=== PATIENT | male | born 1945 | race African-American/Black ===

== ENCOUNTER 2017-08-13 13:09 | Emergency (ER) | payer MEDICARE ==
[~2017-08-13] VITALS: Ht 185.4 cm; Wt 81.0 kg
[~2017-08-13 13:09] MED LIST: ACTOS45 MG PO; CATAPRES0.2 MG PO; CIPROFLOXACN500 MG PO; COUMADIN4 MG PO; DILAUDID 2MG2 MG/TA1 PO; DILAUDID2 MG PO; FERROUS SULF325 M3 PO; GLUCOPHAGE1000 MG PO; GLYBURID MCR6 MG PO; HUMALOG KW75 MG/25 K SC; KEFLEX500 MG PO; LABETALOL200 MG PO; LANTUS100 MG/ML SC; LOSARTAN POTASS1 TA1 PO; LOSARTAN/HCT1 TA2 PO; NOVOLOG MIX SC; OMEPRAZOLE20 MG PO; PYRIDIUM200 MG PO; SIMVASTATIN20 MG PO; TENORMIN100 MG PO; VERELAN PO
[2017-08-13 13:56] LABS: HEMOGLOBIN 11.4 g/dl (14.0-18.0); IMMATURE GRANULOCYTES 0.4 % (0.0-1.0); MEAN CELL VOLUME 71.6 fL CALC (80.0-100.0); MEAN CORPUSCULAR HGB 22.7 pG CALC (26.0-32.0); MEAN CORPUSCULAR HGB CONC 31.7 g/L CALC (32.0-36.0); NEUT# 8.48 thou/uL (1.82-7.42); RED BLOOD COUNT 5.03 mill/uL (4.70-6.10); RED CELL DISTRI WIDTH 14.7 % (11.5-15.5)
[2017-08-13 14:14] LABS: ALBUMIN 4.8 g/dL (3.2-5.0); ALKALINE PHOSPHATASE 79 u/l (38-126); ANION GAP 17 (6-22 (CALC)); BILIRUBIN, TOTAL 0.6 mg/dL (0.0-1.4); BUN 16 mg/dL (8-23); BUN/CREATININE RATIO 19 (12-20 (CALC)); CARBON DIOXIDE 28 mmol/l (22-30); CHLORIDE 104 mmol/l (95-108); CREATININE 0.8 mg/dL (0.7-1.3); GFR > 60 ML/MIN (>=60 (CALC)); GFR FOR AFR.AMER. > 60 ML/MIN (>=60 (CALC)); GLUCOSE 68 mg/dL (82-115); POTASSIUM 3.1 mmol/l (3.5-5.1); SGOT/AST 43 u/l (19-48); SGPT/ALT 44 u/l (11-66); SODIUM 146 mmol/l (137-146); TOTAL PROTEIN 8.2 g/dL (6.3-8.2)
[2017-08-13 14:35] VITALS: BP 181/79
== END 2017-08-13 14:45 | disposition home or self-care (01) ==
LOC: ED 13:09
PROVIDERS: Emergency Medicine
DX: E11.649 Type 2 diabetes mellitus with hypoglycemia without coma (principal); Z79.4 Long term (current) use of insulin; Z79.84 Long term (current) use of oral hypoglycemic drugs

== ENCOUNTER 2018-11-12 01:11 | Emergency (ER) | payer MEDICARE ==
[~2018-11-12] VITALS: Ht 185.4 cm; Wt 98.0 kg
[~2018-11-12 01:11] MED LIST changes: +ATENOLOL50 MG PO; +CALAN SR240 MG PO; +CLONIDINE0.1 MG PO; +HYDROCHLOROT25 MG PO; +LOSARTAN POT50 MG PO; +METFORMIN1000 MG PO; +PRILOSEC20 MG PO; +ZOCOR20 M1 PO
[2018-11-12] MEDS ORDERED: LOSARTAN/HCT1 TA2 PO (02:13)
[2018-11-12 02:22] LABS: IMMATURE GRANULOCYTES 0.4 % (0.0-5.0); MEAN CORPUSCULAR HGB 19.2 pG CALC (26.0-32.0); MEAN CORPUSCULAR HGB CONC 29.3 g/L CALC (32.0-36.0); NEUT# 11.96 thou/uL (1.82-7.42); RED BLOOD COUNT 3.49 mill/uL (4.70-6.10)
[2018-11-12 02:25] LABS: HEMATOCRIT 22.9 % (39.0-50.0); HEMOGLOBIN 6.7 g/dl (14.0-18.0); MEAN CELL VOLUME 65.6 fL CALC (80.0-100.0)
[2018-11-12 02:36] LABS: ALKALINE PHOSPHATASE 89 u/l (38-126); BILIRUBIN, TOTAL 0.4 mg/dL (0.0-1.4); BUN 18 mg/dL (8-23); BUN/CREATININE RATIO 15 (12-20 (CALC)); CARBON DIOXIDE 21 mmol/l (22-30); CHLORIDE 100 mmol/l (95-108); CREATININE 1.2 mg/dL (0.7-1.3); GFR 59 ML/MIN (>=60 (CALC)); GFR FOR AFR.AMER. > 60 ML/MIN (>=60 (CALC)); SGOT/AST 71 u/l (19-48); TOTAL PROTEIN 6.6 g/dL (6.3-8.2)
[2018-11-12 02:37] LABS: ANION GAP 19 (6-22 (CALC)); POTASSIUM 4.5 mmol/l (3.5-5.1); SODIUM 135 mmol/l (137-146)
[2018-11-12 02:48] LABS: MYOGLOBIN 172 ng/mL (0 - 121)
[2018-11-12 02:54] LABS: PROTHROMBIN TIME 27.1 SECONDS (9.0-12.5)
[2018-11-12 02:55] LABS: INTERNATIONAL NORMALIZED RATIO 2.6 RATIO (0.7-1.3)
[2018-11-12 03:45] VITALS: BP 147/62
== END 2018-11-12 03:45 | disposition short-term general hospital (02) ==
LOC: ED 01:11
PROVIDERS: Emergency Medicine
DX: D64.9 Anemia, unspecified (principal); R42 Dizziness and giddiness; I10 Essential (primary) hypertension; R94.31 Abnormal electrocardiogram [ECG] [EKG]; R00.1 Bradycardia, unspecified; R53.1 Weakness

== ENCOUNTER 2022-02-26 15:40 | Observation (INO) | payer MEDICARE ==
[2022-02-26] VITALS (7 sets, daily range): BP systolic 147–172; BP diastolic 68–81
[~2022-02-26] VITALS: Ht 185.4 cm; Wt 88.0 kg
[2022-02-26 16:29] LABS: MEAN CELL VOLUME 74.4 fL CALC (80.0-100.0); MEAN CORPUSCULAR HGB 23.1 pG CALC (26.0-32.0); MEAN CORPUSCULAR HGB CONC 31.1 g/dL CAL (32.0-36.0); NEUT# 4.72 thou/uL (1.82-7.42); RED BLOOD COUNT 3.55 mill/uL (4.70-6.10)
[2022-02-26 16:31] LABS: HEMATOCRIT 26.4 % (39.0-50.0); HEMOGLOBIN 8.2 g/dl (14.0-18.0)
[2022-02-26 16:44] LABS: ALBUMIN 4.2 g/dL (3.2-5.0); ALKALINE PHOSPHATASE 59 u/l (38-126); BUN 27 mg/dL (8-23); BUN/CREATININE RATIO 21 (12-20 (CALC)); CHLORIDE 101 mmol/l (95-108); CREATININE 1.3 mg/dL (0.7-1.3); GFR 53 ML/MIN (>=60 (CALC)); GFR FOR AFR.AMER. > 60 ML/MIN (>=60 (CALC)); LIPASE 46 u/l (23-300); MAGNESIUM 1.6 mg/dL (1.6-2.3); POTASSIUM 3.8 mmol/l (3.5-5.1); SGOT/AST 31 u/l (19-48); SODIUM 138 mmol/l (137-146)
[2022-02-26 16:45] LABS: ANION GAP 15 (6-22 (CALC)); BILIRUBIN, TOTAL 0.2 mg/dL (0.0-1.4); CARBON DIOXIDE 26 mmol/l (22-30)
[2022-02-26 16:46] LABS: ACT PARTIAL THROMBO TIME 25.9 SECONDS (20.0-32.5)
[2022-02-26 16:49] LABS: PROTHROMBIN TIME 10.3 SECONDS (9.0-12.5)
[2022-02-26] MEDS ORDERED: ASPIRIN81 MG PO (19:26)
[2022-02-26 19:35] LABS: URINE BILIRUBIN - DIPSTICK NEGATIVE (NEGATIVE); URINE BLOOD DIPSTICK NEGATIVE (NEGATIVE); URINE COLOR YELLOW; URINE GLUCOSE - DIPSTICK NEGATIVE (NEGATIVE); URINE KETONE NEGATIVE (NEGATIVE); URINE LEUK ESTERASE TRACE (NEGATIVE); URINE PH 5.5 (4.5-8.0); URINE PROTEIN - DIPSTICK NEGATIVE (NEG-TRACE); URINE UROBILINOGEN - DIPSTICK 0.2 E.U./dL (0.2)
[2022-02-26 19:38] LABS: URINE NITRITE - DIPSTICK NEGATIVE (Negative)
[2022-02-27 04:37] VITALS: BP 144/70
[2022-02-27 04:49] VITALS: BP 167/64
[2022-02-27 05:53] LABS: CHOLESTEROL HDL RATIO 2.4 (<4.4 (CALC)); MAGNESIUM 1.6 mg/dL (1.6-2.3)
[2022-02-27 07:39] LABS: HEMATOCRIT 25.2 % (39.0-50.0); HEMOGLOBIN 7.9 g/dl (14.0-18.0); MEAN CELL VOLUME 74.1 fL CALC (80.0-100.0); MEAN CORPUSCULAR HGB 23.2 pG CALC (26.0-32.0); MEAN CORPUSCULAR HGB CONC 31.3 g/dL CAL (32.0-36.0); RED BLOOD COUNT 3.4 mill/uL (4.70-6.10)
[2022-02-27 07:47] LABS: ANION GAP 10 (6-22 (CALC)); BUN 18 mg/dL (8-23); BUN/CREATININE RATIO 23 (12-20 (CALC)); CARBON DIOXIDE 26 mmol/l (22-30); CHLORIDE 103 mmol/l (95-108); CREATININE 0.8 mg/dL (0.7-1.3); GFR > 60 ML/MIN (>=60 (CALC)); GFR FOR AFR.AMER. > 60 ML/MIN (>=60 (CALC)); POTASSIUM 3.8 mmol/l (3.5-5.1); SODIUM 136 mmol/l (137-146)
[2022-02-27 08:00] VITALS: BP 160/72
[2022-02-27] MEDS ORDERED: APRESOLINE50 MG PO (09:31)
[2022-02-27] MEDS ORDERED: ZPAK PO (11:37)
[2022-02-27 13:06] VITALS: BP 160/72
== END 2022-02-27 14:55 | disposition home or self-care (01) ==
LOC: ED 15:40 → ED-I 18:34 → MS2 18:51 → ED 18:51 → MS2 18:51
PROVIDERS: ADMIT Internal Medicine; ATTEND Internal Medicine
DX: R07.89 Other chest pain (principal); D50.9 Iron deficiency anemia, unspecified; D51.3 Other dietary vitamin B12 deficiency anemia; I10 Essential (primary) hypertension; E11.9 Type 2 diabetes mellitus without complications; Z79.4 Long term (current) use of insulin
CPT/HCPCS: J1756; J3420; Q9967